=== PATIENT | female | born 1985 ===

== ENCOUNTER 2022-09-01 06:00 | Day surgery (SDC) | payer OTHER ==
[~2022-09-01] VITALS: Ht 157.5 cm; Wt 77.1 kg
[~2022-09-01 06:00] MED LIST: MOUNJARO12.5 MG/0.
[2022-09-01] MEDS ORDERED: IBU600 MG PO (15:00)
[2022-09-01] MEDS ORDERED: MORGIDOX100 MG PO (15:00)
== END 2022-09-01 17:45 | disposition home or self-care (01) ==
LOC: CIR.AMB 06:00
PROVIDERS: ATTEND Obstetrics & Gynecology
DX: N92.1 Excessive and frequent menstruation with irregular cycle (principal); N84.0 Polyp of corpus uteri; D25.0 Submucous leiomyoma of uterus; N92.0 Excessive and frequent menstruation with regular cycle; Z20.822 Contact with and (suspected) exposure to COVID-19